=== PATIENT | male | born 1980 | race Caucasian/White ===

== ENCOUNTER 2016-12-06 12:41 | Emergency (ER) | payer OTHER ==
[2016-12-06 13:00] LABS: BASOPHIL 0.3 % (0-2); EOSINOPHIL 5.1 % (0-5); HCT 42.7 % (42.0-52.0); HGB 14.3 g/dl (13.2-18.0); LYMPHOCYTE 33.3 % (15-48); MCH 28.6 pg (25.0-31.0); MCHC 33.5 g/dL (32.0-36.0); MCV 85.4 fL (78.0-100.0); MONOCYTE 6.2 % (0-12); MPV 10.1 fL (6.0-9.5); NEUTROPHIL 55.1 % (41-80); PLT 244 K/uL (150-400); RDW 13.8 % (11.5-14.0); WBC 6.1 K/uL (4.0-10.5)
[2016-12-06 13:22] LABS: ALBUMIN 4.7 g/dL (3.5-5.0); BILIRUBIN - TOTAL 0.6 mg/dL (0.1-1.0); GLOBULIN (CALCULATION) 3.5 g/dL (2.2-4.2); MAGNESIUM 2.04 mg/dL (1.40-2.10); POTASSIUM 3.8 mmol/L (3.5-5.1); TOTAL PROTEIN 8.2 g/dL (6.4-8.3)
[2016-12-06 13:29] LABS: CKMB 1.78 ng/mL (0.97-4.94); MYOGLOBIN 30 ng/mL (26-65); PRO-BNP 13 pg/mL (0-125); TROPONIN T < 0.010 ng/mL
[2016-12-06 15:07] LABS: INR 1.2 (0.9-1.2); PROTHROMBIN TIME 14.3 SECONDS (11.4-13.2); PTT 28.8 SECONDS (24.3-32.1)
[2016-12-06 15:41] LABS: CKMB 1.65 ng/mL (0.97-4.94); MYOGLOBIN 34 ng/mL (26-65); TROPONIN T < 0.010 ng/mL
== END 2016-12-06 16:08 | disposition home or self-care (01) ==
LOC: FER 12:41
PROVIDERS: Internal Medicine; Physician Assistant Medical
DX: R07.89 Other chest pain (principal)
CPT/HCPCS: 36415; 71010; 80053; 82550; 82553; 83735; 83874; 83880; 84484; 85025; 85610; 85730; 93005

== ENCOUNTER 2020-08-05 09:15 | Emergency (ER) | payer OTHER ==
[2020-08-05 11:48] LABS: CORONAVIRUS 2019 SARS-COV-2 NEGATIVE (NEGATIVE); INFLUENZA A NAA NEGATIVE (NEGATIVE)
[2020-08-05] MEDS ORDERED: ZOFRAN4 M1 PO (12:12)
== END 2020-08-05 12:20 | disposition home or self-care (01) ==
LOC: FER 09:15
PROVIDERS: Emergency Medicine
DX: J06.9 Acute upper respiratory infection, unspecified (principal); B34.9 Viral infection, unspecified; Z20.822 Contact with and (suspected) exposure to COVID-19
CPT/HCPCS: 71045; 87880; U0002